=== PATIENT | male | born 1985 | race Caucasian/White ===

== ENCOUNTER 2021-04-12 23:35 | Emergency (ER) | payer SELFPAY ==
[~2021-04-12] VITALS: Ht 165.1 cm; Wt 61.2 kg
[2021-04-12 23:35] VITALS: BP 151/79
--- NOTE | 2021-04-12 23:35 | NUR ---
ALEX AYERS. TAKEN TO CHAIR B
--- NOTE | 2021-04-13 00:20 | NUR ---
PT REFUSED XRAY.
--- NOTE | 2021-04-13 00:28 | NUR ---
PATIENT BIB [employer]. PATIENT EXAMINED BY DR. ROSALES. PATIENT MEDICALLY CLEARED AND RELEASED IN CUSTODY IN STABLE CONDITION. ORIGINAL PRE-BOOK FORM GIVEN TO OFFICER RICHIE, #[id number].
== END 2021-04-13 00:28 ==
LOC: MED 23:35
DX: M79.645 Pain in left finger(s) (principal); Z02.89 Encounter for other administrative examinations; V43.52XA Car driver injured in collision with other type car in traffic accident, initial encounter; Y93.89 Activity, other specified; Y92.89 Other specified places as the place of occurrence of the external cause; Y99.8 Other external cause status
CPT/HCPCS: 99283